=== PATIENT | male | born 1940 | race Caucasian/White ===

== ENCOUNTER → 2019-05-08 | Outpatient (CLI) | payer MEDICARE, BC ==
[2019-05-08 09:58] LABS: INR 1.1 (<1.2); Partial Thromboplastin Time 24.7 sec (22.0-30.0); Prothrombin Time 11.2 sec (9.0-12.0)
== END | disposition home or self-care (01) ==
LOC: LABWHC1 08:53
PROVIDERS: ATTEND Physical Medicine & Rehabilitation
DX: Z51.81 Encounter for therapeutic drug level monitoring (principal); Z79.01 Long term (current) use of anticoagulants
CPT/HCPCS: 36415; 85610; 85730

== ENCOUNTER → 2019-09-17 | Outpatient (CLI) | payer MEDICARE, BC ==
[2019-09-17 18:16] LABS: Prothrombin Time 10.8 sec (9.0-12.0)
== END | disposition home or self-care (01) ==
LOC: LABWHC1 16:59
PROVIDERS: ATTEND Physical Medicine & Rehabilitation
DX: M54.2 Cervicalgia (principal); M47.812 Spondylosis without myelopathy or radiculopathy, cervical region; M54.16 Radiculopathy, lumbar region; M48.062 Spinal stenosis, lumbar region with neurogenic claudication; M51.26 Other intervertebral disc displacement, lumbar region; M47.817 Spondylosis without myelopathy or radiculopathy, lumbosacral region; M16.0 Bilateral primary osteoarthritis of hip; M25.511 Pain in right shoulder; M96.1 Postlaminectomy syndrome, not elsewhere classified; R20.2 Paresthesia of skin; Z79.01 Long term (current) use of anticoagulants
CPT/HCPCS: 36415; 85610

== ENCOUNTER → 2019-11-25 | Outpatient (CLI) | payer MEDICARE, BC | END | disposition home or self-care (01) | LOC: LABMAIN 13:43 | PROVIDERS: ATTEND Physical Medicine & Rehabilitation | DX: Z53.9 Procedure and treatment not carried out, unspecified reason (principal) ==

== ENCOUNTER → 2020-10-30 | Outpatient (CLI) | payer MEDICARE, BC ==
--- NOTE | 2020-10-30 15:29 | CT ---
EXAMINATION TYPE: CT angio chest DATE OF EXAM: 10/30/2020 3:10 PM COMPARISON: None. HISTORY: THORACIC ANEURYSM CT DLP: 794.2 mGycm Automated exposure control for dose reduction was used. CONTRAST: CTA scan of the thorax is performed without and with IV Contrast, patient injected with 80 mL of I[address] ue 370, aneurysm protocol. 3D reconstructed images are created on an independent workstation and rev iewed.. FINDINGS: LUNGS: Mild left greater than right bibasilar linear scarring and/or atelectasis. There is no pleur al effusion or pneumothorax seen. No suspicious nodules or masses. The tracheobronchial tree is paten t. MEDIASTINUM: Mildly enlarged main pulmonary artery of 3.2 cm axial image 27. Adjacent ascending aort a measures up to 3.7 cm in diameter sagittal image 61.. Some pulsation artifact at the aortic root li mits evaluation at this level. Normal 3 vessel origin from the aortic arch. Mild to moderate calcifie d plaque in the thoracic aorta. More prominent moderate to severe plaque in the abdominal aorta exten ding into abdominal branch vessels . There are no greater than 1 cm hilar or mediastinal lymph nodes. No pericardial effusion is seen. Cardiomegaly is identified. Moderate biatrial dilatation. Mild to moderate left ventricular dilatation. Calcification at level of mitral and aortic valves. Fairly sev ere three-vessel coronary artery calcification with possible RCA stent, correlate clinically. OTHER: [id number]-bl-[id number] size hiatal hernia. Scoliotic curvature. Cbcx-[id number]-[id number] multilevel spurri ng. 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
== END | disposition home or self-care (01) ==
LOC: RADCTMAIN 13:37
PROVIDERS: ATTEND Internal Medicine Cardiovascular Disease
DX: I51.7 Cardiomegaly (principal); I71.2 Thoracic aortic aneurysm, without rupture
CPT/HCPCS: 82565; 84520; 71275; 36415; Q9967

== ENCOUNTER → 2020-11-03 | Outpatient (CLI) | payer MEDICARE, BC ==
[2020-11-04 03:55] LABS: INR 1.13 (0.90-1.11); Partial Thromboplastin Time 32.2 sec (23.5-31.0); Prothrombin Time 12.1 sec (9.9-11.9)
== END | disposition home or self-care (01) ==
LOC: LABWHC1 13:54
PROVIDERS: ATTEND Physical Medicine & Rehabilitation
DX: Z51.81 Encounter for therapeutic drug level monitoring (principal); Z79.01 Long term (current) use of anticoagulants
CPT/HCPCS: 36415; 85610; 85730